=== PATIENT | female | born 1975 | race African-American/Black ===

== ENCOUNTER 2018-01-24 18:48 | Emergency (ER) | payer MEDICAID ==
[~2018-01-24] VITALS: Ht 165.1 cm; Wt 94.0 kg
[2018-01-24] MEDS ORDERED: IBUPROFEN 200MG TABLET ONE (19:00)
[2018-01-24] MEDS ORDERED: ONDANSETRON HCL 4MG/2ML VIAL IV STA (23:24)
[2018-01-24] MEDS ORDERED: SODIUM CHLORIDE 0.9% 1,000 ML IV ONE (23:24)
[2018-01-24 23:54] LABS: HEMOGLOBIN. 10.6 g/dL (12.0-16.0); MEAN CORPUSCULAR HEMOGLOBIN 22.8 pg (28.0-32.0); MEAN PLATELET VOLUME 8.3 fl (7.4-10.4); PLATELET 329 x1000/uL (130-400); RED BLOOD CELL COUNT 4.66 mill/uL (4.2-5.4); RED CELL DISTRIBUTION WIDTH 17.5 % (11.6-14.6)
[2018-01-25 00:01] LABS: CHLORIDE 103 mEq/L (98-107)
[2018-01-25 00:11] LABS: PROTHROMBIN TIME 10.5 sec (9.4-11.6)
[2018-01-25 00:30] LABS: CLARITY URINE CLEAR (CLEAR); COLOR URINE YELLOW (YELLOW); KETONES URINE NEGATIVE (NEGATIVE); LEUKOCYTE ESTERASE URINE NEGATIVE (NEGATIVE); NITRITE URINE NEGATIVE (NEGATIVE); OCCULT BLOOD URINE NEGATIVE (NEGATIVE); PH URINE 5.5 (4.5-8.0); PROTEIN URINE NEGATIVE (NEGATIVE); SPECIFIC GRAVITY URINE 1.011 (1.005-1.030); UROBILINOGEN URINE 0.2 E.U./dL (0.2-1.0)
[2018-01-25 01:05] VITALS: BP 138/67
[2018-01-25 03:49] LABS: ATYPICAL LYMPHOCYTES 1; PLATELET ESTIMATE NORMAL
== END 2018-01-25 01:31 | disposition home or self-care (01) ==
LOC: ER 18:48
DX: J10.1 Influenza due to other identified influenza virus with other respiratory manifestations (principal); M79.1 Myalgia; R00.0 Tachycardia, unspecified; E11.9 Type 2 diabetes mellitus without complications; E78.00 Pure hypercholesterolemia, unspecified; I10 Essential (primary) hypertension; D64.9 Anemia, unspecified; Z98.890 Other specified postprocedural states; Z88.0 Allergy status to penicillin
CPT/HCPCS: 36415; 71045; 80053; 81003; 81025; 83605; 85025; 85610; 87040; 87086; 87804; 93005; 96361; 96374; 99285; J2405; J7030